=== PATIENT | female | born 1985 | race Hispanic/Latino ===

== ENCOUNTER 2019-03-05 17:54 | Inpatient (IN) | payer OTHER ==
[~2019-03-05] VITALS: Ht 156.2 cm; Wt 87.1 kg
[2019-03-05] MEDS ORDERED: LACTATED RINGERS 1000ML 1,000 ML IV PRN (19:31)
[2019-03-05 19:36] VITALS: BP 120/78
[2019-03-05 20:22] LABS: APPEARANCE,URINE Clear (CLEAR); BILIRUBIN,URINE Negative (NEGATIVE); COLOR,URINE Yellow (YELLOW); GLUCOSE, URINE (UA) Negative (NEGATIVE); KETONES,URINE Negative (NEGATIVE); LEUKOCYTE ESTERASE ,URINE Small (NEGATIVE); NITRATE,URINE Negative (NEGATIVE); OCCULT BLOOD,URINE Negative (NEGATIVE); PH,URINE 5.5 (5.0-8.0); PROTEIN,URINE Negative (NEGATIVE)
[2019-03-05 20:24] LABS: AMPHET/METH SCREEN,URINE NEGATIVE (NEGATIVE); BARBITURATE SCREEN, URINE NEGATIVE (NEGATIVE); BENZODIAZEPINES SCREEN,URINE NEGATIVE (NEGATIVE); CANNABINOID SCREEN,URINE NEGATIVE (NEGATIVE); COCAINE SCREEN,URINE NEGATIVE (NEGATIVE); OPIATE SCREEN,URINE NEGATIVE (NEGATIVE); PHENCYCLIDINE SCREEN,URINE NEGATIVE (NEGATIVE)
[2019-03-05 20:39] LABS: BACTERIA,URINE Moderate /HPF (None Seen); MUCUS,URINE Moderate LPF (None Seen)
[2019-03-05 21:01] LABS: MEAN CORPUSCULAR HEMOGLOBIN 25.5 pg (27.0-33.0); MEAN CORPUSCULAR HGB CONC 32.5 g/dL (32.0-36.0); MEAN CORPUSCULAR VOLUME 78.2 fL (79-99); NUCLEATED RED BLOOD CELLS 0.1 % (0.0-0.19); PLATELET COUNT (AUTO) 183 K/uL (130-400); RED BLOOD CELL COUNT(AUTO) 4.74 MIL/uL (4.00-5.50); RED CELL DISTRIBUTION WIDTH 22.9 % (11.0-15.5); WHITE BLOOD COUNT (AUTO) 10.7 K/uL (4.8-10.8)
[2019-03-05 21:11] LABS: CREATININE 0.7 mg/dL (0.5-1.5)
[2019-03-05 21:12] LABS: INR 0.87 (0.85-1.15); PARTIAL THROMBOPLASTIN TIME 26.6 SEC (26.3-35.5); PROTHROMBIN TIME 9.2 SEC (9.6-11.6)
[2019-03-05 21:16] LABS: ALBUMIN 2.8 g/dL (3.5-5.0); BILIRUBIN,TOTAL 0.3 mg/dL (0.2-1.0); TOTAL PROTEIN, SERUM 8.2 g/dL (6.0-8.3); URIC ACID 6.1 mg/dL (2.6-7.2)
[2019-03-05] MEDS ORDERED: PREN1TAB80 PO (21:56)
[2019-03-06] MEDS ORDERED: MEPERIDINE-PF 50 MG/ML SYG IVP PRN
[2019-03-06] MEDS ORDERED: PROMETHAZINE HCL 25 MG/ML 1ML AMPULE IM PRN
[2019-03-06] MEDS ORDERED: MEPERIDINE-PF 50 MG/ML SYG ONE (00:08)
[2019-03-06] MEDS ORDERED: OXYTOCIN-LR 20 UNITS/1000 ML 1,000 ML IV ONE (00:37)
[2019-03-06] MEDS ORDERED: LANOLIN 30GM OINTMENT TP PRN (03:15)
[2019-03-06] MEDS ORDERED: DIPH,PERTUSS(ACELL),TET VAC/PF 0.5 ML VIAL IM PRN (03:15)
[2019-03-06] MEDS ORDERED: ACETAMINOPHEN 325 MG TAB PO PRN (03:15)
[2019-03-06] MEDS ORDERED: ACETAMINOPHEN-CODEINE 300/30MG TAB PO PRN (03:15)
[2019-03-06] MEDS ORDERED: WITCH HAZEL 1 PAD TP PRN (03:15)
[2019-03-06] MEDS ORDERED: BENZOCAINE/LANOLIN/ALOE VERA 60 ML AEROSOL TP PRN (03:15)
[2019-03-06] MEDS ORDERED: IBUPROFEN 600 MG TABLET ONE (03:30)
[2019-03-06] MEDS ORDERED: OXYTOCIN 10 USP UNITS/ML 20 UNIT in LACTATED RINGERS 1000ML 1,000 ML IV SCH ×2 (04:00→05:00)
[2019-03-06 04:10] VITALS: BP 144/92
[2019-03-06] MEDS: OXYTOCIN-LR 20 UNITS/1000 ML 1,000 ML IV SCH ×2 (07:00→19:57)
[2019-03-06 07:23] VITALS: BP 119/60
[2019-03-06] MEDS ORDERED: FLU VACC QS2019-20 36MOS UP/PF 60 MCG/0.5 ML ML IM ONE (07:30)
--- NOTE | 2019-03-06 07:40 | NUR ---
PATIENT IN ROOM WITH BABY ON CHEST. FUNDUS FIRM AT UMBILICUS. BLEEDING IS SCANT. CALL LIGHT LEFT IN REACH OF PATIENT. ADVISED TO CALL WITH ANY NEEDS OR CONCERNS.
[2019-03-06] MEDS: DOCUSATE SODIUM 100 MG CAP PO SCH ×2 (08:53→20:23)
[2019-03-06] MEDS: IBUPROFEN 600 MG TABLET PO PRN ×2 (08:54→16:26)
[2019-03-06 11:55] VITALS: BP 125/84
--- NOTE | 2019-03-06 14:10 | NUR ---
PATIENT SALINE LOCKED AT THIS TIME. ASSISTED IN SUCCESSFULLY LATCHING BABY TO RIGHT BREAST. ADVISED PATIENT TO CALL WITH ANY NEEDS OR CONCERNS. CALL LIGHT LEFT IN REACH.
[2019-03-06 16:50] VITALS: BP 125/82
[2019-03-06 19:31] VITALS: BP 136/77
[2019-03-06 23:30] VITALS: BP 102/64
[2019-03-07] MEDS: IBUPROFEN 600 MG TABLET PO PRN ×2 (03:25→09:02)
[2019-03-07 04:02] VITALS: BP 104/63
[2019-03-07 05:10] LABS: HEPATITIS Bs ANTIGEN SCREEN P Negative (Negative)
[2019-03-07 05:42] LABS: HEMATOCRIT 31.2 % (36-48); MEAN CORPUSCULAR HEMOGLOBIN 25.5 pg (27.0-33.0); MEAN CORPUSCULAR HGB CONC 32.7 g/dL (32.0-36.0); PLATELET COUNT (AUTO) 149 K/uL (130-400); RED BLOOD CELL COUNT(AUTO) 4.01 MIL/uL (4.00-5.50); RED CELL DISTRIBUTION WIDTH 22.3 % (11.0-15.5); WHITE BLOOD COUNT (AUTO) 8.7 K/uL (4.8-10.8)
[2019-03-07 07:30] VITALS: BP 125/76
[2019-03-07] MEDS: DOCUSATE SODIUM 100 MG CAP PO SCH (09:01)
[2019-03-07 11:52] VITALS: BP 136/76
--- NOTE | 2019-03-07 11:53 | NUR ---
HX of late prenantal care Sw met with pt who states that this her 8th child NB son Nicko Mantilla. Pt has 17,14,13,12,5,4,1 1/2 yros at home with Mikael Mantilla. They live in home and he works as yard man. Couple has basic items and car seat for baby and Dr Chau will follow baby after dc. Pt states that she had regular periods and when they stopped, she went to doctor and discovered she as 4 months . Pt is undocumented and has applied for ER Medicaid, has WIC and food stamps. Pt denies need for referral or intervention at this time.
--- NOTE | 2019-03-07 14:45 | NUR ---
DISCHARGE PT STABLE, NO PAIN, NO COMPLAINTS; PT LEFT UNIT, VIA WHEELCHAIR, WITH BABY IN ARMS, ACCOMPANIED BY [facility] AND FAMILY MEMBERS CARRYING ALL PERSONAL BELONGINGS AND INSTRUCTIONS; PT LEFT FACILITY IN PERSONAL VEHICLE
== END 2019-03-07 14:45 | disposition home or self-care (01) | DRG 807 ==
LOC: EDH 17:54 → LDH 18:39 → WSH 03-06 04:05
PROVIDERS: ADMIT Obstetrics & Gynecology; ATTEND Obstetrics & Gynecology
PROC: 10E0XZZ Delivery of Products of Conception, External Approach (ICD-10-PCS; principal; 2019-03-06)
PROC: 3E0234Z Introduction of Serum, Toxoid and Vaccine into Muscle, Percutaneous Approach (ICD-10-PCS; 2019-03-06)
PROC: 3E02340 Introduction of Influenza Vaccine into Muscle, Percutaneous Approach (ICD-10-PCS; 2019-03-06)
PROC: 10907ZC Drainage of Amniotic Fluid, Therapeutic from Products of Conception, Via Natural or Artificial Opening (ICD-10-PCS; 2019-03-06)
DX: O80 Encounter for full-term uncomplicated delivery (principal); Z37.0 Single live birth; Z23 Encounter for immunization; Z3A.39 39 weeks gestation of pregnancy
CPT/HCPCS: 36415; 76805; 80053; 80305; 81001; 84550; 85027; 85384; 85610; 85730; 86592; 86850; 86900; 86901; 87340; 90715; G0008; G0378; J2175; J2590; J7120

== ENCOUNTER 2020-05-26 01:51 | Inpatient (IN) | payer MEDICAID, OTHER ==
[~2020-05-26] VITALS: Ht 160 cm; Wt 87.5 kg
[~2020-05-26 01:51] MED LIST: PREN1TAB80 PO
[2020-05-26 02:17] VITALS: BP 221/119
[2020-05-26 02:42] LABS: APPEARANCE,URINE Clear (CLEAR); BILIRUBIN,URINE Negative (NEGATIVE); COLOR,URINE Yellow (YELLOW); GLUCOSE, URINE (UA) Negative (NEGATIVE); KETONES,URINE Negative (NEGATIVE); LEUKOCYTE ESTERASE ,URINE Trace (NEGATIVE); NITRATE,URINE Negative (NEGATIVE); OCCULT BLOOD,URINE Negative (NEGATIVE); PH,URINE 7.5 (5.0-8.0); PROTEIN,URINE 300 mg/dL (NEGATIVE)
[2020-05-26 02:50] LABS: AMPHET/METH SCREEN,URINE NEGATIVE (NEGATIVE); BARBITURATE SCREEN, URINE NEGATIVE (NEGATIVE); BENZODIAZEPINES SCREEN,URINE NEGATIVE (NEGATIVE); CANNABINOID SCREEN,URINE NEGATIVE (NEGATIVE); COCAINE SCREEN,URINE NEGATIVE (NEGATIVE); OPIATE SCREEN,URINE NEGATIVE (NEGATIVE); PHENCYCLIDINE SCREEN,URINE NEGATIVE (NEGATIVE)
[2020-05-26 02:55] LABS: BACTERIA,URINE Rare /HPF (None Seen); RBC,URINE None Seen /HPF (0-1); SQUAMOUS EPITHELIAL CELL,UR Few /HPF (0-2); WBC,URINE None Seen /HPF (0-1)
[2020-05-26] MEDS ORDERED: MAGNESIUM 4GM PREMIX 100ML 100 ML IV PRN ×2 (03:00→14:45)
[2020-05-26] MEDS ORDERED: LACTATED RINGERS 1000ML 1,000 ML IV SCH (03:00)
[2020-05-26] MEDS ORDERED: CALCIUM GLUCONATE 1 GM/10 ML VIAL IV PRN (03:00)
[2020-05-26] MEDS ORDERED: MAGNESIUM 4GM PREMIX 100ML 100 ML IV ONE (03:00)
[2020-05-26] MEDS ORDERED: LABETALOL 20 MG/4 ML DISP.SYRIN IV ONE (03:00)
[2020-05-26] MEDS ORDERED: HYDRALAZINE HCL 20 MG/ML VIAL IM PRN (03:00)
[2020-05-26] MEDS ORDERED: MAGNESIUM SULFATE 1,000 ML IV PRN ×2 (03:00→14:45)
[2020-05-26] MEDS ORDERED: MAGNESIUM SULFATE 1,000 ML IV ONE (03:01)
[2020-05-26 03:23] LABS: ALANINE AMINOTRANSFERASE 74 U/L (12-78); ALBUMIN 2.4 g/dL (3.5-5.0); ASPARTATE AMINOTRANSFERASE 97 U/L (10-37); BILIRUBIN,DIRECT < 0.1 mg/dL (0.0-0.3); BILIRUBIN,TOTAL 0.3 mg/dL (0.2-1.0); CREATININE 0.6 mg/dL (0.5-1.5); GLOMERULAR FILTR. RATE CALC 120 mL/min (>60); UREA NITROGEN, BLOOD 9 mg/dL (7-18); URIC ACID 5.6 mg/dL (2.6-7.2)
[2020-05-26] MEDS: LABETALOL HCL 5 MG/ML 20ML VIAL IV PRN ×4 (03:34→11:28)
[2020-05-26] MEDS ORDERED: HYDRALAZINE HCL 20 MG/ML VIAL ONE (03:39)
[2020-05-26 03:40] LABS: MEAN CORPUSCULAR HEMOGLOBIN 26.2 pg (27.0-33.0); MEAN CORPUSCULAR HGB CONC 32.2 g/dL (32.0-36.0); MEAN CORPUSCULAR VOLUME 81.5 fL (79-99); PLATELET COUNT (AUTO) 155 K/uL (130-400); RED BLOOD CELL COUNT(AUTO) 5.03 MIL/uL (4.00-5.50); RED CELL DISTRIBUTION WIDTH 18.5 % (11.0-15.5)
[2020-05-26] MEDS ORDERED: HYDRALAZINE HCL 20 MG/ML VIAL IV PRN ×2 (03:45→11:15)
[2020-05-26 04:14] LABS: INR 0.9 (0.85-1.15); PROTHROMBIN TIME 9.7 SEC (9.6-11.6)
[2020-05-26 04:15] LABS: PARTIAL THROMBOPLASTIN TIME 28.4 SEC (26.3-35.5)
[2020-05-26 06:20] LABS: POTASSIUM 4.2 mmol/L (3.5-5.1)
[2020-05-26] MEDS ORDERED: CEFAZOLIN SODIUM 1 GM VIAL ONE (12:11)
[2020-05-26] MEDS ORDERED: CEFAZOLIN SODIUM 1 GM VIAL IVP PRN (12:15)
[2020-05-26] MEDS ORDERED: ONDANSETRON HCL 4 MG/2 ML VIAL ONE ×2 (12:43→12:58)
[2020-05-26] MEDS ORDERED: FENTANYL CITRATE PF 50 MCG/1 ML 2ML VIAL ONE (12:43)
[2020-05-26] MEDS ORDERED: DURAMORPH PF1 MG/ML 10ML AMP IV ONE (12:43)
[2020-05-26] MEDS ORDERED: CEFAZOLIN SODIUM 1 GM VIAL IVP ONE (13:00)
[2020-05-26] MEDS ORDERED: MIDAZOLAM HCL 1 MG/ML 2ML VIAL ONE ×2 (13:02→13:27)
[2020-05-26] MEDS ORDERED: OXYTOCIN 10 USP UNITS/ML ONE ×3 (13:05→13:17)
[2020-05-26] MEDS ORDERED: EPHEDRINE SULFATE 50 MG/ML AMPULE ONE (13:12)
[2020-05-26] MEDS ORDERED: SODIUM CHLORIDE 0.9% 10 ML VIAL IVP PRN (14:45)
[2020-05-26] MEDS ORDERED: DEXTROSE 5 %-0.45 % NACL 1,000 ML IV PRN (14:45)
[2020-05-26] MEDS ORDERED: OXYTOCIN-LR 20 UNITS/1000 ML 1,000 ML IV PRN (14:45)
[2020-05-26] MEDS ORDERED: MEPERIDINE-PF 75 MG/ML SYG IM PRN (14:45)
[2020-05-26] MEDS ORDERED: PROMETHAZINE HCL 25 MG/ML 1ML AMPULE IM PRN (14:45)
[2020-05-26 18:48] LABS: HEMATOCRIT 41.2 % (36-48)
[2020-05-27] MEDS ORDERED: LACTATED RINGERS 1000ML IV SCH (02:00)
[2020-05-27] MEDS ORDERED: MAGNESIUM 4GM PREMIX 100ML 100 ML IV PRN (03:00)
[2020-05-27 05:12] LABS: HEPATITIS Bs ANTIGEN SCREEN P Negative (Negative)
[2020-05-27 08:22] LABS: BASOPHILS % (AUTO) 0.1 % (0.0-5.0); EOSINOPHILS % (AUTO) 0.1 % (0.0-8.0); HEMATOCRIT 35.7 % (36-48); LYMPHOCYTES % (AUTO) 16.3 % (21.0-51.0); MEAN CORPUSCULAR HEMOGLOBIN 26.1 pg (27.0-33.0); MEAN CORPUSCULAR HGB CONC 32.2 g/dL (32.0-36.0); MEAN CORPUSCULAR VOLUME 81.1 fL (79-99); MONOCYTES % (AUTO) 5.4 % (3.0-13.0); NEUTROPHILS % (AUTO) 77.2 % (40.0-77.0); PLATELET COUNT (AUTO) 152 K/uL (130-400); RED CELL DISTRIBUTION WIDTH 18.9 % (11.0-15.5); WHITE BLOOD COUNT (AUTO) 11.4 K/uL (4.8-10.8)
[2020-05-27 08:43] LABS: INR 0.89 (0.85-1.15); PROTHROMBIN TIME 9.6 SEC (9.6-11.6)
[2020-05-27 08:44] LABS: PARTIAL THROMBOPLASTIN TIME 27.2 SEC (26.3-35.5)
[2020-05-27 08:45] LABS: BILIRUBIN,TOTAL 0.2 mg/dL (0.2-1.0); CREATININE 0.7 mg/dL (0.5-1.5); POTASSIUM 3.8 mmol/L (3.5-5.1); TOTAL PROTEIN, SERUM 5.9 g/dL (6.0-8.3); URIC ACID 4.5 mg/dL (2.6-7.2)
[2020-05-27] MEDS ORDERED: HYDROCODONE/ACETAMINOPHEN 5/325 MG TAB PO PRN (09:00)
[2020-05-27] MEDS ORDERED: SODIUM CHLORIDE 0.9% 10 ML VIAL IVP PRN (09:00)
[2020-05-27] MEDS ORDERED: IBUPROFEN 600 MG TABLET PO PRN (09:00)
[2020-05-27] MEDS ORDERED: LANOLIN 30GM OINTMENT TP PRN (09:00)
[2020-05-27] MEDS ORDERED: DIPHENHYDRAMINE HCL 25 MG CAPSULE PO PRN (09:00)
[2020-05-27] MEDS ORDERED: ACETAMINOPHEN EXTRA STRENGTH 500 MG TABLET PO PRN (09:00)
[2020-05-27] MEDS ORDERED: BISACODYL 10 MG SUPP.RECT RC PRN (09:00)
[2020-05-27 09:51] VITALS: BP 142/93
[2020-05-27] MEDS: SIMETHICONE 80 MG TAB.CHEW PO PRN ×3 (10:25→21:16)
[2020-05-27] MEDS: LABETALOL HCL 100 MG TABLET PO SCH ×2 (10:25→21:16)
[2020-05-27] MEDS: DOCUSATE SODIUM 100 MG CAP PO SCH ×2 (10:25→21:16)
[2020-05-27] MEDS: IBUPROFEN 800 MG TAB PO SCH ×2 (10:39→18:38)
[2020-05-27 11:41] VITALS: BP 148/92
[2020-05-27] MEDS: ACETAMINOPHEN-CODEINE 300/30MG TAB PO PRN (16:25)
[2020-05-27 16:26] VITALS: BP 137/83
[2020-05-27] MEDS ORDERED: DIPH,PERTUSS(ACELL),TET VAC/PF 0.5 ML VIAL IM ONE (16:30)
[2020-05-27] MEDS ORDERED: MEASLES/MUMPS/RUBELLA VACCINE, LIVE 0.5 ML/VIAL SQ ONE (16:30)
[2020-05-27] MEDS ORDERED: FLU VACC QS2020-21(6MOS UP)/PF 60 MCG/0.5 ML ML IM ONE (16:30)
[2020-05-27 19:25] VITALS: BP 138/88
[2020-05-27 23:03] VITALS: BP 137/85
[2020-05-28] MEDS: IBUPROFEN 800 MG TAB PO SCH ×2 (02:37→09:24)
[2020-05-28 03:08] VITALS: BP 145/85
[2020-05-28] MEDS: ACETAMINOPHEN-CODEINE 300/30MG TAB PO PRN (06:23)
[2020-05-28 07:21] VITALS: BP 140/92
[2020-05-28] MEDS ORDERED: LABETALOL HCL 100 MG TABLET ONE (09:22)
[2020-05-28] MEDS: SIMETHICONE 80 MG TAB.CHEW PO PRN (09:23)
[2020-05-28] MEDS: DOCUSATE SODIUM 100 MG CAP PO SCH (09:23)
[2020-05-28 11:26] VITALS: BP 139/86
[2020-05-28 15:45] VITALS: BP 136/88
[2020-05-28] MEDS ORDERED: LABETALOL HCL 200 MG TABLET PO SCH (21:00)
== END 2020-05-28 16:05 | disposition home or self-care (01) | DRG 787 ==
LOC: EDH 01:51 → OBSVTOIN 01:52 → LDH 01:52 → WSH 05-27 09:45
PROVIDERS: ADMIT Obstetrics & Gynecology; ATTEND Obstetrics & Gynecology
PROC: 10D00Z1 Extraction of Products of Conception, Low, Open Approach (ICD-10-PCS; principal; 2020-05-26 12:45)
PROC: 3E0134Z Introduction of Serum, Toxoid and Vaccine into Subcutaneous Tissue, Percutaneous Approach (ICD-10-PCS; 2020-05-27)
PROC: 3E0234Z Introduction of Serum, Toxoid and Vaccine into Muscle, Percutaneous Approach (ICD-10-PCS; 2020-05-27)
PROC: 3E0234Z Introduction of Serum, Toxoid and Vaccine into Muscle, Percutaneous Approach (ICD-10-PCS; 2020-05-27)
DX: O14.14 Severe pre-eclampsia complicating childbirth (principal); O36.4XX0 Maternal care for intrauterine death, not applicable or unspecified; O32.1XX0 Maternal care for breech presentation, not applicable or unspecified; O77.0 Labor and delivery complicated by meconium in amniotic fluid; Z3A.26 26 weeks gestation of pregnancy; Z37.1 Single stillbirth; Z23 Encounter for immunization
CPT/HCPCS: 36415; 59510; 76805; 80051; 80053; 80076; 80305; 81001; 82310; 82565; 82947; 84520; 84550; 85014; 85018; 85025; 85027; 85384; 85610; 85730; 86592; 86701; 86850; 86900; 86901; 86923; 87340; 87390; 90707; 90715; A4344; G0378; J0360; J0690; J2175; J2250; J2274; J2405; J2550; J2590; J3010; J3475; J3490; J7120; Q2035